=== PATIENT | female | born 1945 | race Caucasian/White ===

== ENCOUNTER → 2017-10-21 06:33 | Outpatient (CLI) | payer MEDICARE, SELFPAY ==
--- NOTE | 2017-10-21 13:22 | STRESSREP ---
Stress Test Report Pharmacologic myocardial perfusion stress test. 72-year-old lady with a history of shortness of breath. Stress protocol: Resting EKG demonstrates sinus bradycardia with a rate of 58 bpm normal intervals and noted resting blood pressure is 120/82 mmHg. 0.4 mg regadenoson was infused per usual protocol followed by Intravenous saline flush injection continuous EKG monitoring was performed. The maximum heart rate attained was 80 bpm which was 53% maximum predicted heart rate the maximum workload attained was 1 metabolic equivalent. At rest there were no ST or T-wave changes noted suggest abnormal flow reserve at peak infusion no ST or T-wave changes were noted suggest abnormal flow reserve. No areas of reversibility are noted suggest abnormal flow reserve. Myocardial perfusion protocol. 11.9 mCi of technetium 99m sestamibi was injected at rest. 0.4 mg of regadenoson was infused per usual protocol peak infusion 34.5 mCi of technetium 99m sestamibi was injected stress images were obtained stress and rest images were reconstructed and compared in the short axis vertical long horizontal long axis. Gated images were also obtained Perfusion SPECT analysis: Review of the stress images demonstrate normal uptake of tracer noted in all areas of myocardium the resting images similarly demonstrate normal uptake of tracer noted in all wrists myocardium. No areas of reversibility and is just ischemia no previous infarct is noted. Gated SPECT analysis: The gated ejection fraction is 77%. Conclusion: Normal pharmacologic myocardial perfusion stress test Preserved ejection fraction.
== END ==
PROVIDERS: Visit Provider Internal Medicine Pulmonary Disease
DX: R06.00 Dyspnea, unspecified (principal)
CPT/HCPCS: 78452; 93017; A9500; A4216; J2785

== ENCOUNTER → 2019-01-06 10:33 | Outpatient (CLI) | payer MEDICARE, SELFPAY ==
--- NOTE | 2019-01-06 11:08 | ECHOD_ITS ---
Reason For Study: PHTN Procedure This was a 2D Doppler, Color Flow transthoracic echocardiogram. Exam performed in department. Left Ventricle Normal LV size. The estimated ejection fraction is 55 %. Normal diastology for age. No regional wall motion abnormalities noted. Right Ventricle Normal RV size. Normal systolic function. Atria Normal left atrium. Normal right atrium. No doppler evidence for ASD. Mitral Valve There is no mitral valve stenosis. Trivial mitral valve insufficiency. Tricuspid Valve There is no tricuspid stenosis. Trivial tricuspid valve insufficiency. Pulmonary artery systolic pressure is 25 mmHg. Aortic Valve Trisinus/trileaflet aortic valve. There is no aortic stenosis. No aortic valve insufficiency. Pulmonic Valve There is no pulmonic valvular stenosis. No pulmonic valve insufficiency. Great Vessels Normal aortic root. Pericardium/Pleural No pericardial effusion. MMode/2D Measurements & Calculations LVIDd: 4.8 cm IVSd: 1.3 cm Ao root diam: 3.8 cm LVIDs: 3.6 cm LVPWd: 1.3 cm RVDd: 3.4 cm FS: 24.9 % LAV(MOD-bp): 58.0 ml LA A4 area: 18.7 cm2 LA dimension(2D): 3.7 cm LAV(MOD-bp) Indexed: 27.7 ml/m2 LAV(MOD-sp2): 57.6 ml LAV(MOD-sp4): 59.3 ml RA A4 area: 13.7 cm2 Time Measurements MV dec time: 0.25 sec Doppler Measurements & Calculations MV E max antoine: 53.6 cm/sec Lat Peak E' Antoine: 8.3 cm/sec Med Peak E' Antoine: 6.5 cm/sec MV A max antoine: 75.0 cm/sec E/E' lat: 6.5 E/E' med: 8.2 MV E/A: 0.72 Ao V2 max: 89.4 cm/sec LV V1 max: 67.7 cm/sec PA V2 max: 85.6 cm/sec Ao max P.2 mmHg LV V1 max P.8 mmHg TR max antoine: 219.5 cm/sec TR max P.3 mmHg Interpretation Summary The estimated ejection fraction is 55 %. Normal diastology for age. Pulmonary artery systolic pressure is 25 mmHg. Trivial mitral valve insufficiency. Ordering Physician: Kali Valero Referring Physician: Danielle Jonas Performed By: Susanna Greenwood RDCS, RVT
== END ==
PROVIDERS: PCP Internal Medicine Gastroenterology; Referring Provider Internal Medicine Gastroenterology; Visit Provider Internal Medicine Pulmonary Disease
DX: I27.20 Pulmonary hypertension, unspecified (principal)
CPT/HCPCS: 93306